=== PATIENT | female | born 1950 | race Caucasian/White ===

== ENCOUNTER 2021-09-12 16:02 | Outpatient (REF) | payer MEDICARE, SELFPAY ==
--- NOTE | ~2021-09-12 | CT_ITS ---
EXAMINATION: CT ABDOMEN AND PELVIS WITH CONTRAST CLINICAL INFORMATION: Diverticulitis COMPARISON: None TECHNIQUE: Multidetector volumetric images were obtained from the superior aspect of the liver through the pubic symphysis following administration 85 mL of Omnipaque 350 intravenous contrast. Sagittal and coronal reformatted images were obtained on the technologist's workstation. Oral contrast: Yes This CT examination was performed using dose optimization techniques as appropriate, variously including the following: *Automated exposure control *Adjustment of mA and/or kV according to patient size (this includes techniques or standardized protocols for targeted exams where dose is matched to indication/reason for exam; i.e. extremities or head) *Use of iterative reconstruction technique DLP: 289 mGy-cm FINDINGS: LUNG BASES: The visualized lung bases are unremarkable. LIVER, GALLBLADDER, AND BILIARY TREE: The liver is normal in size and shape. There are multiple liver cysts. The largest measures 1.5 m in the medial segment of the left lobe of the liver. The gallbladder is unremarkable. There is no biliary duct dilatation. PANCREAS: Unremarkable. SPLEEN: Unremarkable. ADRENAL GLANDS: Unremarkable. KIDNEYS AND URETERS: There is a 1 cm cyst in the left kidney. No imaging follow-up needed. The kidneys are otherwise unremarkable. BLADDER: Unremarkable. GASTROINTESTINAL TRACT: There is diverticulosis of the colon. No evidence of diverticulitis is seen. There is stool throughout the colon questionable for constipation. Small and large bowel is otherwise unremarkable. The appendix is unremarkable. The stomach is unremarkable. ABDOMINAL WALL: There is a small umbilical hernia containing fat. LYMPH NODES: Normal. VASCULAR: There is evidence of atherosclerotic disease. No aneurysm is seen. PELVIC VISCERA: Unremarkable. OSSEOUS STRUCTURES: There are degenerative changes of the spine. There is curvature of the lower lumbar spine to the left. CT/CT abdomen pelvis w con IMPRESSION: Diverticulosis. No evidence of diverticulitis. Stool throughout the colon questionable for constipation. Multiple liver cysts and a single left renal cyst. Fleischner guidelines were followed.
[2021-09-12] MEDS: iohexoL 350 MG/ML 100 ML INFUS..BTL 85 ML IV (17:20)
== END 2021-09-12 16:03 | disposition home or self-care (01) ==
LOC: HO.CT 16:02
PROVIDERS: Visit Provider Internal Medicine
DX: K57.30 Diverticulosis of large intestine without perforation or abscess without bleeding (principal)
CPT/HCPCS: 74177; Q9967